=== PATIENT | female | born 1960 | race Two or more races ===

== ENCOUNTER 2024-11-25 20:19 | Inpatient (IN) | payer MEDICAID, OTHER ==
[~2024-11-25] VITALS: Ht 172.7 cm; Wt 68.1 kg
[2024-11-25 21:39] LABS: Red Blood Cells 3.23 10^6/uL (4.0-5.20)
[2024-11-25 21:42] LABS: Hematocrit 31.7 % (36.0-46.0); Hemoglobin 10.6 g/dL (12.2-16.2); Mean Corpuscular Hemoglobin 32.7 pg (28.0-32.0); Mean Corpuscular Hgb Conc. 33.3 g/dL (32.0-36.0); Mean Corpuscular Volume 98.1 fL (80.0-100.0); Platelet Count (auto) 149 10^3/uL (140-450); Red Cell Distribution Width 14.6 % (11.8-14.3)
[2024-11-25 21:52] LABS: Alanine Aminotransferase 13 U/L (7-40); Alkaline Phosphatase 71 U/L (46-116); Anion Gap 8 (5-15); Aspartate Aminotransferase 18 U/L (13-40); BUN/Creatinine Ratio 12.8 (10.0-20.0); Blood Urea Nitrogen 17 mg/dL (9-23); Calcium 10.3 mg/dL (8.7-10.4); Carbon Dioxide 26 mmol/L (20-31); Chloride 102 mmol/L (98-107); Lipase 43 U/L (12-53); Sodium 136 mmol/L (136-145)
[2024-11-25 21:53] LABS: Bilirubin, Total 0.9 mg/dL (0.2-1.0); Total Protein 7.3 g/dL (5.7-8.2)
[2024-11-25 21:55] LABS: White Blood Cell 227.1 10^3/uL (4.4-10.8)
[2024-11-25 21:56] LABS: Basophils % (manual) 0 (0.0-2.0); Eosinophils % (manual) 0 (0-7); Metamyelocytes % 0; Myelocytes % 0; Promyelocytes % 0
[2024-11-25 22:05] LABS: Glucose 142 mg/dL (74-106); Potassium 5.4 mmol/L (3.5-5.1)
--- NOTE | 2024-11-25 22:39 | ED.PDOC ---
History of Present Illness HPI Comments 64 y/o F presents with c/o diffused, upper abdominal pain, headache, cough, chills, and fever for 1x month, today. Patient endorses on pain being reproducible with pressure applied to her upper abdomen. She reports medical history of hysterectomy, CKF, rheumatoid arthritis, and leukemia. 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 Hx Family History Family History: Unknown Social History Smoker: Non-Smoker Alcohol: Denies ETOH Use Drugs: Denies Drug Use Lives In: Home Constitutional: reports: chills, fever Respiratory: reports: cough Gastrointestinal: reports: abdominal pain Neurological: reports: headache All Other Systems: Reviewed and Negative (negative unless otherwise stated above or in HPI) Physical Exam General Appearance: No Apparent Distress, Normal HEENT: Normal ENT Inspection, Pharynx Normal, TMs Normal Neck: Full Range of Motion, Non-Tender, Normal, Normal Inspection Respiratory: Chest Non-Tender, Lungs Clear, No Accessory Muscle Use, No Respiratory Distress, Normal Breath Sounds Cardiovascular: No Edema, No JVD, No Murmur, No Gallop, Normal Peripheral Pulses, Regular Rate/Rhythm Breast Exam: Deferred Gastrointestinal: Epigastric (tenderness), LUQ (tenderness), No Organomegaly, No Pulsatile Mass, Normal Bowel Sounds, RUQ (tenderness), Soft, Tenderness (tenderness to bilateral upper quadrants and epigastric areas) Genitalia: Deferred Pelvic: Deferred Rectal: Deferred Extremities: No calf tenderness, Normal capillary refill, Normal inspection, Normal range of motion, Non-tender, No pedal edema Musculoskeletal : Apperance: Normal Neurologic: Alert, habitat management coordinator II-XII nml as Tested, No Motor Deficits, Normal Affect, Normal Mood, No Sensory Deficits Cerebellar Function: Normal Reflexes: Normal Skin: Dry, Normal Color, Warm Lymphatic: No Adenopathy Was a procedure done? Was a procedure done?: No Differential Dx Considerations may include: gastritis, gastroenteritis, viral syndrome, PUD, GERD, UTI X-Ray, Labs, Meds, VS Vital Signs Date Time Temp Pulse Resp B/P (MAP) Pulse Ox O2 Delivery O2 Flow Rate FiO2 11/26/24 00:29 99.2 11/25/24 23:29 101.1 11/25/24 21:00 99.4 109 16 123/65 (84) 94 Lab Test 11/26/24 00:23 11/25/24 22:15 11/25/24 21:30 11/25/24 21:10 Range/Units Influenza Type A Antigen Pending Influenza Type B Antigen Pending SARS-CoV-2 Antigen (Rapid) Pending Lactic Acid Level 1.3 0.4-2.0 mmol/L Urine Color Light-orange Yellow Urine Clarity Turbid H Clear Urine pH 5.5 5.0-9.0 Urine Specific [place] 1.016 1.001-1.035 Urine Protein 1+ H Negative Urine Ketones Negative Negative Urine Blood 3+ H Negative /uL Urine Nitrite Negative Negative Urine Bilirubin Negative Negative Urine Urobilinogen Normal Negative mg/dL Urine Leukocyte Esterase Negative Negative /uL Urine RBC 65 0 - 4 /hpf Urine Microscopic WBC 5 0-5 /HPF Urine Squamous Epithelial Cells Few <5 /hpf Urine Uric Acid Crystals Few None Seen /hpf Urine Bacteria Few H None Seen /hpf Urine Mucus Few None Seen Urine Yeast (Budding) Occasional None Seen /hpf Urine Glucose Normal Normal mg/dL White Blood Count 227.1 *H 4.4-10.8 10^3/uL Red Blood Count 3.23 L 4.0-5.20 10^6/uL Hemoglobin 10.6 L 12.2-16.2 g/dL Hematocrit 31.7 L 36.0-46.0 % Mean Corpuscular Volume 98.1 80.0-100.0 fL Mean Corpuscular Hemoglobin 32.7 H 28.0-32.0 pg Mean Corpuscular Hemoglobin Concent 33.3 32.0-36.0 g/dL Red Cell Distribution Width 14.6 H 11.8-14.3 % Platelet Count 149 140-450 10^3/uL Mean Platelet Volume 7.8 6.9-10.8 fL Neutrophils (%) (Auto) 37.0-80.0 % Lymphocytes (%) (Auto) 10.0-50.0 % Monocytes (%) (Auto) 0.0-12.0 % Basophils (%) (Auto) 0.0-2.0 % Neutrophils # (Auto) 1.6-8.6 10 ^3/uL Lymphocytes # (Auto) 0.4-5.4 10 ^3/uL Monocytes # (Auto) 0-1.3 10 ^3/uL Differential Total Cells Counted Pending Neutrophils % (Manual) Pending Band Neutrophils % (Manual) Pending Lymphocytes % (Manual) Pending Monocytes % (Manual) Pending Eosinophils % (Manual) Pending Basophils % (Manual) Pending Metamyelocytes % (manual) Pending Myelocytes % (Manual) Pending Promyelocytes % (Manual) Pending Blast Cells % (Manual) Pending Reactive Lymphocytes Pending Platelet Estimate Pending Sodium Level 136 136-145 mmol/L Potassium Level 5.4 H 3.5-5.1 mmol/L Chloride Level 102 98-107 mmol/L Carbon Dioxide Level 26 20-31 mmol/L Anion Gap 8 5-15 Blood Urea Nitrogen 17 9-23 mg/dL Creatinine 1.33 H 0.550-1.02 mg/dL Glomerular Filtration Rate Calc 45 >90 mL/min BUN/Creatinine Ratio 12.8 10.0-20.0 Serum Glucose 142 H 74-106 mg/dL Calcium Level 10.3 8.7-10.4 mg/dL Total Bilirubin 0.9 0.2-1.0 mg/dL Aspartate Amino Transferase (AST) 18 13-40 U/L Alanine Aminotransferase (ALT) 13 7-40 U/L Alkaline Phosphatase 71 46-116 U/L Total Protein 7.3 5.7-8.2 g/dL Albumin 5.0 H 3.2-4.8 g/dL Lipase 43 12-53 U/L Current Medications Medications (Trade) Dose Ordered Sig/Micaela Route Start Time Stop Time Status Last Admin Ondansetron HCl (Zofran Po) 8 mg ONCE ONCE PO 11/25/24 22:00 11/25/24 22:01 DC 11/25/24 23:29 Famotidine (Pepcid Tablet) 40 mg ONCE ONCE PO 11/25/24 22:00 11/25/24 22:01 DC 11/25/24 23:29 Al Hydrox/Mg Hydrox/Simethicone (Maalox Plus) 30 ml ONCE ONCE PO 11/25/24 22:00 11/25/24 22:01 DC 11/25/24 23:30 Sodium Chloride 1,900 ml @ 1,900 mls/hr ONCE ONCE IV 11/25/24 22:45 11/25/24 23:44 DC 11/25/24 23:22 Piperacillin Sod/ Tazobactam Sod 100 ml @ 100 mls/hr ONCE ONCE IV 11/25/24 22:45 11/25/24 23:44 DC 11/25/24 23:24 Acetaminophen (Tylenol Tablet) 1,000 mg ONCE ONCE PO 11/25/24 23:00 11/25/24 23:01 DC 11/25/24 23:29 Time of 1ST Reevaluation: 01:09 Reevaluation 1ST: Unchanged Patient Education/Counseling: Diagnosis, Treatment Family Education/Counseling: No Family Present Departure 1 Departure Time of Disposition: 01:08 Impression: Primary Impression: Leukemia, acute Additional Impressions: Fever Abdominal pain Disposition: ADMITTED INPATIENT Condition: Guarded Discharged With: Self Comments Left Upper Quadrant Abdominal Pain with Leukocytosis Chief Complaint: Left upper quadrant abdominal pain History of Present Illness: Patient is a 64-year-old female with history of leukemia who presents with two days of left upper quadrant abdominal pain. She reports associated low-grade fever of 100.5F. No other associated symptoms mentioned in the history. Review of Systems: Limited review of systems due to nature of presentation. Constitutional: Positive for fever Gastrointestinal: Positive for left upper quadrant abdominal pain All other systems reviewed and negative Medications: No current medications documented Vital Signs: Temperature: 100.5F Other vital signs not documented Physical Exam: Physical examination details not documented in peer counselor Lab Results: WBC: 227, 000/L (critically elevated) BUN: 17 mg/dL (elevated) Creatinine: 1.33 mg/dL (elevated) Potassium: 5.4 mEq/L (elevated) Imaging and Other Relevant Results: CT Abdomen/Pelvis: - Hepatosplenomegaly noted - Colonic stool burden present - No acute pathology identified Medical Decision Making: Summary Statement: 64-year-old female with history of leukemia presenting with LUQ pain, fever, marked leukocytosis, and acute kidney injury requiring admission. Problem List: 1. Severe leukocytosis 2. Acute kidney injury 3. Hyperkalemia 4. Left upper quadrant abdominal pain 5. Hepatosplenomegaly Differential Diagnosis: 1. Leukemia relapse/progression 2. Infection/sepsis 3. Tumor lysis syndrome 4. Splenic infarction 5. Other abdominal pathology ED Course: Patient evaluated with comprehensive labs and CT imaging. Given mar ked leukocytosis and renal dysfunction, decision made to admit for IV hydration and further workup. Assessment and Plan: 1. Severe Leukocytosis (WBC 227, 000): - Likely representing leukemia relapse/progression - Admit to Hematology service - Will require bone marrow biopsy during admission 2. Acute Kidney Injury with Hyperkalemia: - Start IV fluid hydration - Monitor renal function and electrolytes - Evaluate for tumor lysis syndrome 3. Left Upper Quadrant Abdominal Pain: - Likely related to hepatosplenomegaly - Continue to monitor symptoms - Pain management as needed Disposition: Admit to inpatient service for further management and workup Billing Information: ICD-10: C95.90 - Leukemia, unspecified not having achieved remission ICD-10: R10.13 - Left upper quadrant pain ICD-10: N17.9 - Acute kidney failure, unspecified ICD-10: E87.5 - Hyperkalemia ICD-10: R16.2 - Hepatomegaly with splenomegaly, not elsewhere classified Critical Care Note Critical Care Time?: Yes (35 min-critical care time only) Critical care comment: Total critical care time: Approximately 36 minutes Due to a high probability of clinically significant, life threatening deterioration, the patient required my highest level of preparedness to intervene emergently and I personally spent this critical care time directly and personally managing the patient. This critical care time included obtaining a history; examining the patient; pulse oximetry; ordering and review of studies; arranging urgent treatment with development of a management plan; evaluation of patient's response to treatment; frequent reassessment; and, discussions with other providers. This critical care time was performed to assess and manage the high probability of imminent, life-threatening deterioration that could result in multi-organ failure. It was exclusive of separately billable procedures and treating other patients. Stability Stability form required: No Heart Score Heart Score: Heart Score Response (Comments) Value History N/A 0 EKG N/A 0 Age N/A 0 Risk Factors N/A 0 Troponin N/A 0 Total 0 I personally scribed for GWEN RITTER MD ([email or web address]) on 11/25/24 at 22:39. Electronically submitted by Eber Cristobal ([email or web address]). GWEN RITTER MD Nov 25, 2024 22:39
[2024-11-25 22:40] LABS: Urine Bacteria FEW /hpf (None Seen); Urine Blood 3+ /uL (Negative); Urine Budding Yeast OCCASIONAL /hpf (None Seen); Urine Clarity Turbid (Clear); Urine Color Light-Orange (Yellow); Urine Mucus FEW (None Seen); Urine Protein, UAD 1+ (Negative); Urine Specific Gravity 1.016 (1.001-1.035); Urine Squamous Epithelial Cell FEW /hpf (<5); Urine Urobilinogen Normal (Negative); Urine WBC 5 /HPF (0-5); Urine pH 5.5 (5.0-9.0)
[2024-11-25] MEDS: IOHEXOL 300 MG/ML 100ML BOTTLE IJ ONE (22:56)
[2024-11-25] MEDS: SODIUM CHLORIDE 0.9% 1,900 ML IV ONE (23:22)
[2024-11-25] MEDS: PIPERACILLIN-TAZO 4.5GM 100 ML IV ONE (23:24)
[2024-11-25] MEDS: FAMOTIDINE 20 MG TAB PO ONE (23:29)
[2024-11-25] MEDS: ACETAMINOPHEN 325 MG TAB PO ONE (23:29)
[2024-11-25] MEDS: ONDANSETRON ODT 4 MG TAB PO ONE (23:29)
[2024-11-25] MEDS: MAALOX PLUS or MAALOX 30 ML PO ONE (23:30)
--- NOTE | 2024-11-26 00:37 | DVH ---
Exam: CT CT AB PEL WITH IV CON ONLY History: upper abd pain, leukemia COMPARISON: None Technique: Multidetector spiral CT of the abdomen and pelvis was performed from lung bases to pubic s ymphysis. Intravenous contrast was administered during this examination. Portal venous imaging was obtained. Axial, coronal and sagittal multiplanar reformats were performed by the technologist on a separate workstation. Radiation Dose : 1. Abdomen/Pelvis: CTDIvol 11.23mGy, DLP 582.84 mGy*cm. CONTRAST: Type of contrast: Isovue Contrast injected: 100 ml Findings: Lung Bases: No acute or significant lung base finding. Normal heart size. No pleural or pericardial effusion. Liver: Hepatomegaly measuring up to 21.4 cm. Splenomegaly measuring up to 17.4 cm Gallbladder and Biliary Tree: Unremarkable Spleen: Unremarkable Pancreas: The pancreas is normal in appearance without focal lesions or abnormal enhancement. Adrenal Glands: Unremarkable Kidneys: No hydronephrosis. Bladder: Unremarkable Bowel: The stomach is grossly normal in appearance. Small bowel and colon are normal in caliber and d istribution. Normal appendix is visualized in the right lower quadrant without findings of appendici tis. Ascites: Absent Lymphadenopathy: No mesenteric, retroperitoneal or periportal lymphadenopathy. Abdominal Wall and Mesentery: Unremarkable. Vasculature: The visualized abdominal aorta is normal in size and caliber. Abdominal and pelvic vess els demonstrate normal enhancement. Pelvic Organs: Unremarkable Musculoskeletal: No aggressive focal bony lesions, acute fractures or dislocation. IMPRESSION: 1. No acute abdominal or pelvic finding. 2. Hepatosplenomegaly. 3. Moderate to large colonic stool burden. Radiation optimization: All CT scans at this facility use at least one of these dose optimization rod hniques: automated exposure control mA and/or kV adjustment per patient size (includes targeted exam s where dose is matched to clinical indication) or iterative reconstruction.
[2024-11-26 01:26] LABS: COVID19 ANTIGEN SOFIA FIA NEGATIVE (NEGATIVE); Rapid Influenza B Negative (Negative)
[2024-11-26 01:27] LABS: Rapid Influenza A Positive (Negative)
[2024-11-26 01:51] LABS: Band Neutrophils % (manual) 1; Monocytes % (manual) 2 (0-12); Reactive Lymphocytes 3
[2024-11-26 01:52] LABS: Blast Cells 36; Lymphocytes % (manual) 56 (10.0-50.0)
[2024-11-26 01:54] LABS: Platelet Estimate Adequate
[2024-11-26] MEDS ORDERED: MORPHINE SULFATE INJ 2 MG/ml SYRG IV PRN (02:15)
[2024-11-26] MEDS ORDERED: NITROGLYCERIN 0.4 MG SL TAB SL PRN (02:15)
[2024-11-26 02:29] LABS: Uric Acid 5.3 mg/dL (3.1-7.8)
[2024-11-26 02:44] LABS: Phosphorus 2.2 mg/dL (2.4-5.1)
[2024-11-26] MEDS: DEXTROSE (50%) 50ML SYRG IV ONE (02:54)
[2024-11-26] MEDS: SODIUM CHLORIDE 0.9% 1,000 ML IV ONE (02:54)
[2024-11-26] MEDS: SODIUM BICARB 8.4% 50Meq/50ml SYR INJ IV ONE (02:54)
[2024-11-26] MEDS: InsuLIN REG 1unit/0.01ml Soln (100units/ml) IV ONE (03:09)
[2024-11-26] MEDS: FUROSEMIDE 20 MG/2 ML VIAL IV ONE (03:15)
[2024-11-26 03:37] VITALS: PULSE 78; RESP 19; O2SAT 97
--- NOTE | 2024-11-26 05:10 | DVH ---
CHEST RADIOGRAPH Indication: influenza Technique: Single frontal view of the chest was obtained COMPARISON: None FINDINGS: Lines and Tubes: None Lungs: Diffuse increased interstitial prominence. Pleura: No effusion. No pneumothorax. Cardiomediastinal contours: Unremarkable Bones: Unremarkable IMPRESSION: Possible viral pneumonia
--- NOTE | 2024-11-26 05:18 | DVHHPRES ---
History of Present Illness Resident Creating Document: JOHN HERNANDEZ RESIDENT History of Present Illness A 64-year-old female with a history of chronic lymphocytic leukemia and rheumatoid arthritis presents with upper abdominal pain for one month and flu- like symptoms for one week, including runny nose, headache, chills, and fever. She describes the abdominal pain as diffuse, with tenderness to palpation in the upper quadrants. She denies nausea, vomiting, or recent changes in bowel movements. She has followed with an oncologist in [place] but is not currently taking any medications. She tested positive for influenza A but does not have respiratory distress. Past Medical History Chronic Lymphocytic Leukemia Rheumatoid Arthritis Surgical History Hysterectomy Medications None currently Allergies No known drug allergies Social History Smoking: Non-smoker Alcohol Use: Denies Drug Use: Denies Residence: [place] Review of Systems Constitutional: Yes: Fever, Chills, Weakness, Malaise; No: Sweats, Other Eyes: No: Pain, Vision change, Conjunctivae inflammation, Eyelid inflammation, Other, Redness ENT: No: Ear pain, Ear discharge, Nose pain, Nose discharge, Nose congestion, Mouth pain, Mouth swelling, Throat pain, Throat swelling, Other Respiratory: Other (runny nose ); No: Cough, Dry, Shortness of breath, SOB with excertion, Wheezing, Hemoptysis, Pleuritic Pain, Sputum, Wheezing Cardiovascular: No: Chest Pain, Palpitations, Orthopnea, Paroxysmal Noc. Dyspnea, Edema, Lt Headedness, Other Gastrointestinal: Abdominal Pain; No: Nausea, Vomiting, Diarrhea, Constipation, Melena, Hematochezia, Other Genitourinary: No Dysuria, No Frequency, No Incontinence, No Hematuria, No Retention, No Other Musculoskeletal: No: other, neck pain, shoulder pain, arm pain, back pain, hand pain, leg pain, foot pain Skin: No: Rash, Lesions, Jaundice, Bruising, Other Neurological: No: Weakness, Numbness, Incoordination, Change in speech, Confusion, Seizures, Other Allergies: Uncoded Allergies: Arithromycin (Allergy, Severe, 11/26/24) codiene (Allergy, Severe, 11/26/24) Medications Current Medications Medications Dose Ordered Sig/Micaela Route Start Time Stop Time Status Last Admin Dose Admin Nitroglycerin 0.4 mg Q5MINP PRN SL 11/26/24 02:15 Morphine Sulfate 2 mg Q30M PRN IV 11/26/24 02:15 Oseltamivir Phosphate 30 mg DAILY PO 11/26/24 10:00 12/01/24 09:59 Ceftriaxone Sodium 50 ml @ 100 mls/hr DAILY IV 11/26/24 10:00 Acetaminophen 650 mg Q4HP PRN PO 11/26/24 05:00 Exam Vital Signs Vital Signs Date Time Temp Pulse Resp B/P (MAP) Pulse Ox O2 Delivery O2 Flow Rate FiO2 11/26/24 05:00 98.4 79 19 101/58 (72) 97 98.4 11/26/24 03:37 Room Air* 0 21 General Appearance: Alert, Oriented X3, Cooperative HEENT: Atraumatic, PERRLA, EOMI Respiratory: Clear to auscultation, Normal air movement Cardiovascular: Regular rate, Normal S1 Abdominal: Normal bowel sounds, Soft Extremities: No clubbing, No cyanosis Skin: No rashes, No breakdown Neuro: Normal gait, Normal speech Psych/Mental Status: Mental status NL Labs/Xrays Labs Test 11/26/24 03:00 11/26/24 00:23 11/25/24 22:15 11/25/24 21:30 Range/Units POC Glucose 136 H 70-106 mg/dl Influenza Type A Antigen Positive Negative Influenza Type B Antigen Negative Negative SARS-CoV-2 Antigen (Rapid) Negative NEGATIVE Lactic Acid Level 1.3 0.4-2.0 mmol/L Urine Color Light-orange Yellow Urine Clarity Turbid H Clear Urine pH 5.5 5.0-9.0 Urine Specific [place] 1.016 1.001-1.035 Urine Protein 1+ H Negative Urine Ketones Negative Negative Urine Blood 3+ H Negative /uL Urine Nitrite Negative Negative Urine Bilirubin Negative Negative Urine Urobilinogen Normal Negative mg/dL Urine Leukocyte Esterase Negative Negative /uL Urine RBC 65 0 - 4 /hpf Urine Microscopic WBC 5 0-5 /HPF Urine Squamous Epithelial Cells Few <5 /hpf Urine Uric Acid Crystals Few None Seen /hpf Urine Bacteria Few H None Seen /hpf Urine Mucus Few None Seen Urine Yeast (Budding) Occasional None Seen /hpf Urine Glucose Normal Normal mg/dL Test 11/25/24 21:10 Range/Units White Blood Count 227.1 *H 4.4-10.8 10^3/uL Red Blood Count 3.23 L 4.0-5.20 10^6/uL Hemoglobin 10.6 L 12.2-16.2 g/dL Hematocrit 31.7 L 36.0-46.0 % Mean Corpuscular Volume 98.1 80.0-100.0 fL Mean Corpuscular Hemoglobin 32.7 H 28.0-32.0 pg Mean Corpuscular Hemoglobin Concent 33.3 32.0-36.0 g/dL Red Cell Distribution Width 14.6 H 11.8-14.3 % Platelet Count 149 140-450 10^3/uL Mean Platelet Volume 7.8 6.9-10.8 fL Neutrophils (%) (Auto) 37.0-80.0 % Lymphocytes (%) (Auto) 10.0-50.0 % Monocytes (%) (Auto) 0.0-12.0 % Basophils (%) (Auto) 0.0-2.0 % Neutrophils # (Auto) 1.6-8.6 10 ^3/uL Lymphocytes # (Auto) 0.4-5.4 10 ^3/uL Monocytes # (Auto) 0-1.3 10 ^3/uL Differential Total Cells Counted 100.0 100 Neutrophils % (Manual) 2 L 37.0-80.0 Band Neutrophils % (Manual) 1 Lymphocytes % (Manual) 56 H 10.0-50.0 Monocytes % (Manual) 2 0-12 Eosinophils % (Manual) 0 0-7 Basophils % (Manual) 0 0.0-2.0 Metamyelocytes % (manual) 0 Myelocytes % (Manual) 0 Promyelocytes % (Manual) 0 Blast Cells % (Manual) 36 Reactive Lymphocytes 3 Platelet Estimate Adequate Sodium Level 136 136-145 mmol/L Potassium Level 5.4 H 3.5-5.1 mmol/L Chloride Level 102 98-107 mmol/L Carbon Dioxide Level 26 20-31 mmol/L Anion Gap 8 5-15 Blood Urea Nitrogen 17 9-23 mg/dL Creatinine 1.33 H 0.550-1.02 mg/dL Glomerular Filtration Rate Calc 45 >90 mL/min BUN/Creatinine Ratio 12.8 10.0-20.0 Serum Glucose 142 H 74-106 mg/dL Uric Acid 5.3 3.1-7.8 mg/dL Calcium Level 10.3 8.7-10.4 mg/dL Phosphorus Level 2.2 L 2.4-5.1 mg/dL Total Bilirubin 0.9 0.2-1.0 mg/dL Aspartate Amino Transferase (AST) 18 13-40 U/L Alanine Aminotransferase (ALT) 13 7-40 U/L Alkaline Phosphatase 71 46-116 U/L Lactate Dehydrogenase 217 120-246 U/L B-Type Natriuretic Peptide 61.13 0-100 pg/mL Total Protein 7.3 5.7-8.2 g/dL Albumin 5.0 H 3.2-4.8 g/dL Lipase 43 12-53 U/L Assessment/Plan Assessment/Plan A 64-year-old female with a history of CLL and RA presenting with upper abdominal pain for one month and flu-like symptoms for one week, found to have leukocytosis (WBC 22.2K), acute kidney injury (Cr 1.33), she is at moderate risk for TLS. and hyperkalemia (K 5.4). She is influenza A positive. CT scan showed hepatomegaly #CLL Progression vs. sepsis due to viral Infection #CLL #Rule out: Tumor Lysis Syndrome Moderate Risk #Viral pneumonitis due to Influenza A #TATYANA vasomotor mediated There is not previously renal function to compare if is chronic #H/o RA #Hepatomegaly #Hyperkalemia #UTI? Admit Telemetry IV fluids Oseltamivir renal dose Ceftriaxone IV Hyperkalemia protocol: insulin, bicarbonate and furosemide Phosphorus low, uric acid normal (need to be trend due to risk of TLS) Hematology consult Pancultures Case discussed with Dr Hudson Plan discussed with: Patient, Other My Orders Orders - JOHN HERNANDEZ RESIDENT Procedure Category Date Status Time Admit ADMIT 11/26/24 Transmitted 02:08 Nitroglycerin PHA 11/26/24 In Process Sublingual (Ntrostat 02:15 Morphine Sulfate PHA 11/26/24 In Process Injection 02:15 Oxygen By Nasal RT 11/26/24 Transmitted Cannula 02:08 Stat Ekg For Chest JOANA 11/26/24 In Process Pain 02:08 Notify Of Changes JOANA 11/26/24 In Process From Base 02:08 Physician Assistant Certified For JOANA 11/26/24 In Process 24 Hours 02:08 Emergency Dysrhythmia [facility] 11/26/24 In Process Protocol 02:08 Rhythm Strips Once [facility] 11/26/24 In Process Every Shift 02:08 Electrocardigram EKG 11/26/24 Logged 02:14 Sodium Chloride 0.9% PHA 11/26/24 In Process 02:15 Oseltamivir 30mg PHA 11/26/24 In Process Capsule (Tamiflu 30mg 10:00 * Hematology/Oncology CONS 11/26/24 Transmitted Consult 02:26 Urine Bacterial KARYNA 11/26/24 In Process Culture 02:28 Ceftriaxone 1gm/50ml PHA 11/26/24 In Process D5w (Rocephin) 10:00 Complete Blood Count LAB 11/26/24 Logged 04:00 Comprehensive LAB 11/26/24 Logged Metabolic Panel 04:00 Chest Xray 1 View XY 11/26/24 Taken 02:32 Phosphorus LAB 11/26/24 Logged 04:18 Hemoglobin A1c LAB 11/26/24 Logged 04:18 Thyroid Stimulating LAB 11/26/24 Logged Hormone 04:18 Acetaminophen Tablet PHA 11/26/24 In Process (Tylenol Tablet) 05:00 Date of Service: Nov 26, 2024 Billing Provider: JOYCELYN HUDSON MD Common Visit Codes: [id number] INP/OBS CARE (HIGH) JOHN HERNANDEZ RESIDENT Nov 26, 2024 05:18 JOYCELYN HUDSON MD Nov 26, 2024 14:47
[2024-11-26 07:03] LABS: Hematocrit 30.6 % (36.0-46.0); Platelet Count (auto) 127 10^3/uL (140-450)
[2024-11-26 07:07] LABS: Hemoglobin 9.9 g/dL (12.2-16.2); Mean Corpuscular Hemoglobin 32.1 pg (28.0-32.0); Mean Corpuscular Hgb Conc. 32.5 g/dL (32.0-36.0); Mean Corpuscular Volume 98.8 fL (80.0-100.0); Red Cell Distribution Width 14.5 % (11.8-14.3)
[2024-11-26 07:12] LABS: Albumin 4.5 g/dL (3.2-4.8); Alkaline Phosphatase 66 U/L (46-116); Anion Gap 11 (5-15); BUN/Creatinine Ratio 11.1 (10.0-20.0); Bilirubin, Total 1.2 mg/dL (0.2-1.0); Blood Urea Nitrogen 15 mg/dL (9-23); Calcium 9.5 mg/dL (8.7-10.4); Carbon Dioxide 28 mmol/L (20-31); Chloride 102 mmol/L (98-107); Phosphorus 3.1 mg/dL (2.4-5.1); Potassium 3.5 mmol/L (3.5-5.1); Sodium 141 mmol/L (136-145); Total Protein 6.6 g/dL (5.7-8.2)
[2024-11-26 07:18] LABS: Alanine Aminotransferase < 9 U/L (7-40); Aspartate Aminotransferase 11 U/L (13-40); Glucose 69 mg/dL (74-106)
[2024-11-26 07:27] LABS: Basophils % (manual) 0 (0.0-2.0); Eosinophils % (manual) 0 (0-7); Metamyelocytes % 0; Myelocytes % 0; Promyelocytes % 0
[2024-11-26] MEDS ORDERED: LACTULOSE 20Gm/30ML SOLN PO PRN (08:00)
[2024-11-26] MEDS ORDERED: LACTULOSE 20Gm/30ML SOLN PO ONE (08:00)
[2024-11-26] MEDS ORDERED: SODIUM CHLORIDE 0.9% 1,000 ML IV SCH (08:00)
[2024-11-26] MEDS: ACETAMINOPHEN 325 MG TAB PO PRN (08:14)
[2024-11-26 08:22] LABS: Band Neutrophils % (manual) 1; Blast Cells 42; Lymphocytes % (manual) 52 (10.0-50.0); Monocytes % (manual) 1 (0-12); Reactive Lymphocytes 1
[2024-11-26 08:23] LABS: Platelet Estimate Decreased
[2024-11-26 10:00] VITALS: BP 107/48; PULSE 91; RESP 18; TEMP 99.1; O2SAT 93
[2024-11-26] MEDS ORDERED: LACTULOSE 20Gm/30ML SOLN PO SCH (10:00)
[2024-11-26] MEDS ORDERED: ENOXAPARIN SOD 40 MG/0.4 ML SYRINGE SC SCH (10:00)
[2024-11-26] MEDS ORDERED: OSELTAMIVIR 30 MG CAP PO SCH (10:00)
[2024-11-26] MEDS ORDERED: cefTRIAXone 1GM/50ML D5W 50 ML IV SCH (10:00)
[2024-11-26] MEDS: ALLOPURINOL 100 MG TAB PO SCH (10:06)
[2024-11-26] MEDS: hydroxyUREA 500 MG CAP PO SCH (10:06)
--- NOTE | 2024-11-26 15:08 | DVHDSRES ---
Discharge Summary Date of Admission Resident Creating Document: JOHN HERNANDEZ RESIDENT Nov 26, 2024 at 02:08 Date of Discharge: Nov 26, 2024 Labs/Diagnostic Data: Laboratory Results Test 11/26/24 05:19 11/26/24 03:00 11/26/24 00:23 11/25/24 22:15 White Blood Count 163.0 10^3/uL (4.4-10.8) Red Blood Count 3.10 10^6/uL (4.0-5.20) Hemoglobin 9.9 g/dL (12.2-16.2) Hematocrit 30.6 % (36.0-46.0) Mean Corpuscular Volume 98.8 fL (80.0-100.0) Mean Corpuscular Hemoglobin 32.1 pg (28.0-32.0) Mean Corpuscular Hemoglobin Concent 32.5 g/dL (32.0-36.0) Red Cell Distribution Width 14.5 % (11.8-14.3) Platelet Count 127 10^3/uL (140-450) Mean Platelet Volume 7.8 fL (6.9-10.8) Neutrophils (%) (Auto) % (37.0-80.0) Lymphocytes (%) (Auto) % (10.0-50.0) Monocytes (%) (Auto) % (0.0-12.0) Basophils (%) (Auto) % (0.0-2.0) Neutrophils # (Auto) 10 ^3/uL (1.6-8.6) Lymphocytes # (Auto) 10 ^3/uL (0.4-5.4) Monocytes # (Auto) 10 ^3/uL (0-1.3) Differential Total Cells Counted 100.0 (100) Neutrophils % (Manual) 3 (37.0-80.0) Band Neutrophils % (Manual) 1 Lymphocytes % (Manual) 52 (10.0-50.0) Monocytes % (Manual) 1 (0-12) Eosinophils % (Manual) 0 (0-7) Basophils % (Manual) 0 (0.0-2.0) Metamyelocytes % (manual) 0 Myelocytes % (Manual) 0 Promyelocytes % (Manual) 0 Blast Cells % (Manual) 42 Reactive Lymphocytes 1 Platelet Estimate Decreased Sodium Level 141 mmol/L (136-145) Potassium Level 3.5 mmol/L (3.5-5.1) Chloride Level 102 mmol/L (98-107) Carbon Dioxide Level 28 mmol/L (20-31) Anion Gap 11 (5-15) Blood Urea Nitrogen 15 mg/dL (9-23) Creatinine 1.35 mg/dL (0.550-1.02) Glomerular Filtration Rate Calc 44 mL/min (>90) BUN/Creatinine Ratio 11.1 (10.0-20.0) Serum Glucose 69 mg/dL (74-106) Hemoglobin A1c < 3.8 % A1C (<5.7) Calcium Level 9.5 mg/dL (8.7-10.4) Phosphorus Level 3.1 mg/dL (2.4-5.1) Total Bilirubin 1.2 mg/dL (0.2-1.0) Aspartate Amino Transferase (AST) 11 U/L (13-40) Alanine Aminotransferase (ALT) < 9 U/L (7-40) Alkaline Phosphatase 66 U/L (46-116) Total Protein 6.6 g/dL (5.7-8.2) Albumin 4.5 g/dL (3.2-4.8) Thyroid Stimulating Hormone (TSH) 0.33 uIU/mL (0.55-4.78) POC Glucose 136 mg/dl (70-106) Influenza Type A Antigen Positive (Negative) Influenza Type B Antigen Negative (Negative) SARS-CoV-2 Antigen (Rapid) Negative (NEGATIVE) Lactic Acid Level 1.3 mmol/L (0.4-2.0) Test 11/25/24 21:30 11/25/24 21:10 Urine Color Light-orange (Yellow) Urine Clarity Turbid (Clear) Urine pH 5.5 (5.0-9.0) Urine Specific [place] 1.016 (1.001-1.035) Urine Protein 1+ (Negative) Urine Ketones Negative (Negative) Urine Blood 3+ /uL (Negative) Urine Nitrite Negative (Negative) Urine Bilirubin Negative (Negative) Urine Urobilinogen Normal mg/dL (Negative) Urine Leukocyte Esterase Negative /uL (Negative) Urine RBC 65 /hpf (0 - 4) Urine Microscopic WBC 5 /HPF (0-5) Urine Squamous Epithelial Cells Few /hpf (<5) Urine Uric Acid Crystals Few /hpf (None Seen) Urine Bacteria Few /hpf (None Seen) Urine Mucus Few (None Seen) Urine Yeast (Budding) Occasional /hpf (None Urine Glucose Normal mg/dL (Normal) Uric Acid 5.3 mg/dL (3.1-7.8) Lactate Dehydrogenase 217 U/L (120-246) B-Type Natriuretic Peptide 61.13 pg/mL (0-100) Lipase 43 U/L (12-53) Other Laboratory Tests 11/26/24 05:19 Brief Hx & Hospital Course: A 64-year-old female with a history of chronic lymphocytic leukemia and rheumatoid arthritis presents with upper abdominal pain for one month and flu- like symptoms for one week, including runny nose, headache, chills, and fever. She describes the abdominal pain as diffuse, with tenderness to palpation in the upper quadrants. She denies nausea, vomiting, or recent changes in bowel movements. She has followed with an oncologist in [place] but is not currently taking any medications. She tested positive for influenza A but does not have respiratory distress. Hospital course-patient came to the hospital due to abdominal pain and flu-like symptoms like runny nose, headache, chill, fever. Patient was admitted to the hospital likely due to tumor lysis syndrome, acute on chronic lymphocytic leukemia and pneumonia likely viral likely due to influenza type A. Initial lab workup revealed leukocytosis with WBC 227, mild anemia hemoglobin 10.6, mild hyperkalemia potassium 5.4, TATYANA serum creatinine 1.33, phosphate 2.2, calcium 10.3, bilirubin 1.2, influenza type A positive. Patient was being treated with antibiotics. But patient left AMA. Diagnosis #CLL Progression vs. sepsis due to viral Infection #CLL #Rule out: Tumor Lysis Syndrome Moderate Risk #Viral pneumonitis due to Influenza A #TATYANA vasomotor Nephropathy #H/o RA #Hepatomegaly #Hyperkalemia #UTI? Patient left AMA Condition at Discharge: Undetermined Final Diagnosis/Problems List #CLL Progression vs. sepsis due to viral Infection #CLL #Rule out: Tumor Lysis Syndrome Moderate Risk #Viral pneumonitis due to Influenza A #TATYANA vasomotor Nephropathy #H/o RA #Hepatomegaly #Hyperkalemia #UTI? Discharge Disposition: AMA Discharge Statement: "Patient was advised to return to the ER or call 911 if any headaches, dizziness, shortness of breath, chest pain, abdominal pain, bleeding, fevers, or worsening of medical condition. Patient was counseled about treatment plan, medications, possible side effects, patientverbalized understanding. All questions were answered to the best of my ability. This discharge took greater then 30 minutes in planning, reviewing documentation, counseling the patient, and discussing with other team members." ASSESSMENT ASSESSMENT Assessment GOLDIE BEAVER RESIDENT Nov 26, 2024 15:08
== END 2024-11-26 10:20 | disposition left against medical advice (07) | DRG 720 ==
LOC: ER 20:19 → OVERFLOW 11-26 02:08
PROVIDERS: ADMIT Nurse Practitioner Acute Care; ATTEND Nurse Practitioner Acute Care
DX: A41.89 Other specified sepsis (principal); N17.0 Acute kidney failure with tubular necrosis; C91.10 Chronic lymphocytic leukemia of B-cell type not having achieved remission; R16.0 Hepatomegaly, not elsewhere classified; J10.01 Influenza due to other identified influenza virus with the same other identified influenza virus pneumonia; M06.9 Rheumatoid arthritis, unspecified; J98.4 Other disorders of lung; Z20.822 Contact with and (suspected) exposure to COVID-19; N39.0 Urinary tract infection, site not specified; E87.5 Hyperkalemia; Z53.29 Procedure and treatment not carried out because of patient's decision for other reasons; Z90.710 Acquired absence of both cervix and uterus; Z79.899 Other long term (current) drug therapy
CPT/HCPCS: 36415; 71045; 74177; 80053; 81001; 82962; 83036; 83605; 83615; 83690; 83880; 84100; 84443; 84550; 85007; 85027; 87040; 87086; 87426; 87804; 96365; 99291; G0378; J1815; J2543; Q0162